=== PATIENT | female | born 1975 | race Caucasian/White ===

== ENCOUNTER 2017-02-05 15:55 | Emergency (ER) | payer OTHER ==
[2017-02-05 17:37] VITALS: BP 121/76
--- NOTE | 2017-02-05 18:24 | RAD ---
INDICATION: Back pain. Injury. COMPARISON: None TECHNIQUE: Upright AP and lateral views were obtained . FINDINGS: Bones: There are no acute bony findings. There are no significant osteoarthritic findings. Alignment: Normal Disc spaces: The disc spaces are well-maintained Soft tissues: There are no soft tissue abnormalities. IMPRESSION: NEGATIVE EXAMINATION
--- NOTE | 2017-02-05 19:58 | UC ---
Back Pain HPI - HPI Summary HPI Summary: AND FALL YESTERDAY ON WET POLISHED FLOOR, SIMILAR ACCIDENT TODAY. PAIN IN LEFT LOW BACK; GLUTEAL AREA RADIATES UP BACK. NO LOC. NO LOSS OF CONTROL OF BLADDER OR BOWELS. NO NUMBNESS OR TINGLING IN LEGS. NO BRUISING. - History of Current Complaint Chief Complaint: UCBackPain Stated Complaint: BACK INJURY Time Seen by Provider: 02/05/17 17:45 Hx Obtained From: Patient Hx Last Menstrual Period: 01/27/17 Onset/Duration: Gradual Onset, Lasting Hours, Lasting Days Timing: Intermittent Severity Initially: Moderate Severity Currently: Moderate Pain Intensity: 5 Pain Scale Used: 0-10 Numeric Back Pain: Is Discrete @ - LEFT LOW BACK Character: Spasmodic, Stiffness Aggravating: Movement, Lifting, Bending Alleviating: Position Associated Signs And Symptoms: Negative: Swelling, Redness, Bruising, Fever, Weakness, Numbness, Tingling, Abdominal Pain, Flank Pain, Bladder Incontinence, Bowel Incontinence, Pain with Weight Bearing - Risk Factors TAD Risk Factors: Negative Cauda Equina Risk Factors: Negative Epidural Abscess Risk Factors: Negative - Allergies/Home Medications Allergies/Adverse Reactions: Allergies Allergy/AdvReac Type Severity Reaction Status Date / Time No Known Allergies Allergy Verified 02/05/17 17:37 PMH/Surg Hx/FS Hx/Imm Hx Previously Healthy: Yes - Surgical History Surgical History: None - Family History Known Family History: Negative: Renal Disease - Social History Occupation: Employed Full-time Lives: With Family Alcohol Use: Occasionally Substance Use Type: None Smoking Status (MU): Never Smoked Tobacco - Immunization History Most Recent Influenza Vaccination: no Review of Systems Constitutional: Negative Skin: Negative Eyes: Negative ENT: Negative Respiratory: Negative Cardiovascular: Negative Gastrointestinal: Negative Genitourinary: Negative Motor: Negative Neurovascular: Negative Musculoskeletal: Arthralgia, Myalgia Neurological: Negative Psychological: Negative Is Patient Immunocompromised?: No All Other Systems Reviewed And Are Negative: Yes Physical Exam Triage Information Reviewed: Yes Appearance: Well-Appearing, Well-Nourished, Pain Distress - MILD Vital Signs: Initial Vital Signs Temp 97.6 F 02/05/17 17:29 Pulse 50 02/05/17 17:29 Resp 14 02/05/17 17:29 BP 121/76 02/05/17 17:29 Pulse Ox 100 02/05/17 17:29 Vital Signs Reviewed: Yes Eye Exam: Normal ENT Exam: Normal ENT: Positive: Normal ENT inspection, Hearing grossly normal, TMs normal Dental Exam: Normal Neck exam: Normal Neck: Positive: Supple, Nontender, No Lymphadenopathy Respiratory Exam: Normal Respiratory: Positive: Chest non-tender, Lungs clear, Normal breath sounds, No respiratory distress, No accessory muscle use Cardiovascular Exam: Normal Cardiovascular: Positive: RRR, No Murmur, Pulses Normal Abdominal Exam: Normal Musculoskeletal: Positive: Strength Intact, ROM Intact, No Edema, Other: - PALPABLE SPASM LEFT LOW BACK/PIRIFORMIS; NEGATIVE STRAIGHT LEG RAISE Neurological Exam: Normal Psychological Exam: Normal Skin Exam: Normal Back Pain Course/Dx - Differential Dx/Diagnosis Differential Diagnosis/HQI/PQRI: Strain, Sprain Provider Diagnoses: LOW BACK PAIN Discharge - Discharge Plan Condition: Stable Disposition: HOME Prescriptions: Cyclobenzaprine TAB* [Flexeril 10 MG TAB*] 10 mg PO TID PRN #15 tab PRN Reason: Spasms Patient Education Materials: Acute Low Back Pain (ED), Muscle Spasm (ED) Forms: *Work Release Referrals: [facility] [Outside] No Primary Care Phys,NOPCP [Primary Care Provider] - Additional Instructions: PHYSICAL THERAPY REFERRAL: You have been prescribed physical therapy. Treatments may include stretching, exercise, application of heat or cold, and other modalities. After an injury, PT can reduce swelling and pain. In recovery, PT is used to restore mobility and strength. Your specific treatment goals are: ____x_ Reduction of Swelling (EGS, US, ice as needed) ___x__ Pain Reduction (EGS, US, ice as needed) __x___ TENS Pack Fitting and Instruction Wound Hydrotherapy ____x_ Preservation of Mobility ___x__ Zoroastrianism of Mobility __x___ Strength Zoroastrianism __x___ Work or Sports Hardening This instruction sheet also serves as your PHYSICAL THERAPY REFERRAL! Please take it with you to the therapist, so he/she will be aware of your diagnosis and treatment plan. You may see the physical therapist of your choice for these treatments, but may wish to check with your insurance to be sure the provider you select is covered. It's important to see the doctor to whom you have been referred for follow up.
== END 2017-02-05 18:55 | disposition home or self-care (01) ==
LOC: UCCORT 15:55
DX: M54.5 Low back pain (principal); W01.0XXA Fall on same level from slipping, tripping and stumbling without subsequent striking against object, initial encounter; Y92.9 Unspecified place or not applicable
CPT/HCPCS: 72100; 99202; G0463

== ENCOUNTER 2018-05-05 16:47 | Emergency (ER) | payer BC, OTHER ==
[2018-05-05 17:59] VITALS: BP 127/68
--- NOTE | 2018-05-05 18:22 | UC ---
Ear Complaint HPI - HPI Summary HPI Summary: Pt c/o bilateral ear ache and generalized hearing loss X 1 week. - History of Current Complaint Chief Complaint: UCEar Stated Complaint: BILATERAL EAR PAIN/HEARING LOSS Time Seen by Provider: 05/05/18 18:06 Hx Obtained From: Patient Hx Last Menstrual Period: 05/01/18 ?: No Onset/Duration: Gradual Onset, Lasting Days, Still Present Severity Initially: Mild Severity Currently: Mild Pain Intensity: 3 Associated Signs/Symptoms: Positive: Hearing Loss - Allergies/Home Medications Allergies/Adverse Reactions: Allergies Allergy/AdvReac Type Severity Reaction Status Date / Time No Known Allergies Allergy Verified 05/05/18 17:56 Home Medications: Home Medications NK [No Home Medications Reported] 05/05/18 [History Confirmed 05/05/18] PMH/Surg Hx/FS Hx/Imm Hx Previously Healthy: Yes - Surgical History Surgical History: None - Family History Known Family History: Negative: Renal Disease - Social History Occupation: Employed Full-time Lives: With Family Alcohol Use: Occasionally Substance Use Type: None Smoking Status (MU): Never Smoked Tobacco Have You Smoked in the Last Year: No - Immunization History Most Recent Influenza Vaccination: no Review of Systems All Other Systems Reviewed And Are Negative: Yes Constitutional: Positive: Negative Skin: Positive: Negative Eyes: Positive: Negative ENT: Positive: Ear Ache, Other - hearing loss Respiratory: Positive: Negative Cardiovascular: Positive: Negative Gastrointestinal: Positive: Negative Genitourinary: Positive: Negative Motor: Positive: Negative Neurovascular: Positive: Negative Musculoskeletal: Positive: Negative Neurological: Positive: Negative Psychological: Positive: Negative Is Patient Immunocompromised?: No Physical Exam Triage Information Reviewed: Yes Appearance: Well-Appearing Vital Signs: Initial Vital Signs Temp 98.6 F 05/05/18 17:57 Pulse 72 05/05/18 17:57 Resp 14 05/05/18 17:57 BP 127/68 05/05/18 17:57 Pulse Ox 100 05/05/18 17:57 Vital Signs Reviewed: Yes Eye Exam: Normal ENT: Positive: TM bulging - bilateral Dental Exam: Normal Neck exam: Normal Respiratory Exam: Normal Musculoskeletal Exam: Normal Neurological Exam: Normal Psychological Exam: Normal Skin Exam: Normal Ear Complaint Course/Dx - Course Course Of Treatment: Pt reports that she has an apointment [facility] manager pricing on 05/06/18. Pt was encourage to keep appointment. - Differential Dx/Diagnosis Differential Diagnosis/HQI/PQRI: Otitis Media, URI Provider Diagnosis: Acute pain of both ears, Hearing loss, bilateral Discharge - Sign-Out/Discharge Documenting (check all that apply): Patient Departure All imaging exams completed and their final reports reviewed: No Studies - Discharge Plan Condition: Stable Disposition: HOME Patient Education Materials: Serous Otitis Media (ED) Referrals: [facility] [Outside] - If Needed No Primary Care Phys,NOPCP [Primary Care Provider] - Additional Instructions: PLEASE KEEP YOUR APPOINTMENT WITH THE VANSTONE MACHINE OPERATOR ON 05/06/18. IF YOUR SYMPTOMS WORSEN PLEASE SEEK CARE AT THE [facility]ARE [facility] SOON POSSIBLE. - Billing Disposition and Condition Condition: STABLE Disposition: Home - Attestation Statements Provider Attestation: Per institutional requirements, I have reviewed the chart, however, I was not consulted specifically or made aware of this patient by the midlevel provider. I did not personally evaluate, interact with , or disposition this patient.
== END 2018-05-05 18:24 | disposition home or self-care (01) ==
LOC: UCCORT 16:47
DX: H92.03 Otalgia, bilateral (principal); H91.93 Unspecified hearing loss, bilateral
CPT/HCPCS: 99211; G0463

== ENCOUNTER 2018-09-25 10:15 | Emergency (ER) | payer BC ==
--- NOTE | 2018-09-25 11:04 | UC ---
Palpitation/Dysrhythmia HP - HPI Summary HPI Summary: Per manager trade: "c/o not feeling well and got dizzy today. States chest fluttering intermittently past 3 days. Lasts about 15 minutes. Happens usually when lying down, but today she was sitting. 3 days ago, did have "breast tissue pain", but none now. " -sx started Th night (09/23) after taking an otc generic cold/allergy med. she was able to call home to get ingredients that include phenylephrine. she is very sensitive to any medication and therefore avoids taking them. she has a hard time staying awake even w/ just zyrtec. last night and this morning she took mucinex, which is normally not problematic for her. she The fluttering is fleeting lasting < 1 minute. mild chest pressure with it, no SOB. some dizziness , like pre-syncopal feeling. -today she was sitting in a conference that her was leading and started to get the same sx. she came here thereafter. she did have a [employer] coffee today too. doesnt smoke. no diet pills. she exercises regularly and has a normally lower heart rate in 50s. -denies , had vasectomy -she admits to " alot of thinsg going on". 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 she does admit that these are relevant and that she feels liek she is going to cry every time I ask about stressors. She has a therapist in [place] that she is interested in contacting as she did very well with him in the past. 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 MACHINE OPERATOR AUTOMATIC but never has issues to address other than BRAZING MACHINE OPERATOR AUTOMATIC things - History of Current Complaint Chief Complaint: UCGeneralIllness Stated Complaint: FLUTTERING IN CHEST, SHAKEY Time Seen by Provider: 09/25/18 10:29 Hx Last Menstrual Period: 10 days ago Pain Intensity: 0 - Allergy/Home Medications Allergies/Adverse Reactions: Allergies Allergy/AdvReac Type Severity Reaction Status Date / Time No Known Allergies Allergy Verified 09/25/18 10:17 Home Medications: Home Medications guaiFENesin ER TAB [Mucinex*] 600 mg PO BID PRN 09/25/18 [History Confirmed 09/10] PMH/Surg Hx/FS Hx/Imm Hx Previously Healthy: Yes - Surgical History Surgical History: None - Family History Known Family History: Negative: Renal Disease - Social History Alcohol Use: Occasionally Substance Use Type: None Smoking Status (MU): Never Smoked Tobacco Have You Smoked in the Last Year: No - Immunization History Most Recent Influenza Vaccination: no Review of Systems All Other Systems Reviewed And Are Negative: Yes Constitutional: Positive: Fatigue Skin: Positive: Negative Eyes: Positive: Negative ENT: Positive: Nasal Discharge - allergy like sx Respiratory: Positive: Negative Cardiovascular: Positive: Palpitations - see above Genitourinary: Positive: Negative Motor: Positive: Negative Neurovascular: Positive: Negative Musculoskeletal: Positive: Negative Neurological: Positive: Negative Psychological: Positive: Negative Is Patient Immunocompromised?: No Physical Exam Triage Information Reviewed: Yes Appearance: Well-Nourished, Ill-Appearing - mild, appears anxiouis and initially breathing deeply. tearful at times but also smiling and consolable. very good historian, very pleasant. dressed nicely. Vital Signs: Initial Vital Signs Temp 97.9 F 09/25/18 10:18 Pulse 75 09/25/18 10:18 Resp 17 09/25/18 10:18 BP 140/75 09/25/18 10:18 Pulse Ox 99 09/25/18 10:18 Vital Signs Reviewed: Yes Eye Exam: Normal ENT Exam: Normal ENT: Positive: Normal ENT inspection, Pharynx normal, TMs normal, Uvula midline Dental Exam: Normal Neck exam: Normal Neck: Positive: Supple, Nontender, No Lymphadenopathy Respiratory Exam: Normal Respiratory: Positive: Lungs clear, Normal breath sounds, No respiratory distress, No accessory muscle use. Negative: Crackles, Rhonchi, Stridor, Wheezing Cardiovascular Exam: Normal Cardiovascular: Positive: RRR, No Murmur, Pulses Normal, Brisk Capillary Refill Abdominal Exam: Normal Abdomen Description: Positive: Nontender, Soft. Negative: Distended, Guarding Musculoskeletal Exam: Normal Neurological Exam: Normal Psychological Exam: Normal Skin Exam: Normal Skin: Negative: Rashes Palpitations Course/Dx - Course Course Of Treatment: EKG: NSR, nml axis, no AV/IV changes. HR 60s. No st/t changes. no delta waves. -sx are likely multi-factorial that are aggrevated by phenylephrine and stressors. can't r/o arrhythmia and disc importance of work up recommending at least 48 hr holter if not event monitor. -avoid decongestents. -will call her 's PCP through [facility] to est care and F/u. 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 -thearpy I think will be helpful as well -she has had panic attacks in past and sx do seem to be somehwat similar -deep breathing w/ recurrent sx -she is very receptive to this plan and appreciative -no recent labs -today - cbc, cmp, lipids, tsh, ft4. -recommend she can call for results too -rec release given for her to expedite records getting to new pcp - Differential Dx/Diagnosis Differential Diagnosis/HQI/PQRI: Paroxymal SVT, Other - arrhythmia Provider Diagnosis: Palpitations Discharge - Sign-Out/Discharge Documenting (check all that apply): Patient Departure All imaging exams completed and their final reports reviewed: No Studies - Discharge Plan Condition: Stable Disposition: HOME Patient Education Materials: Heart Palpitations (ED) Referrals: No Primary Care Phys,NOPCP [Primary Care Provider] - Additional Instructions: We talked today about several things that could be contributing to your recent symptoms. The phenylephrine that you took Th night likely contributed, along with feelings of stress and being overwhelmed. We also talked about the importance of further evaluation to rule out any other cause and to try to "catch" your heart rhythm on a monitor while you are having the symptoms. I would recommend getting at least a 48 hr monitor if not a 14 day monitor. Today we checked for electrolytes, kidney function, liver function, blood count and thyroid as standard work up. We talked about the value of checking in with your therapist in [place] as well. Also, it is a good idea to have a PCP to have follow up with. You can call your 's PCP office on Thursday to set up an appt for this week hopefully. -Please go to the ER with more significant symptoms or passing out. -Avoid all cold medicines and decongestants. Decreasing caffeine and doing 1/2 decaf may be beneficial as well. - Billing Disposition and Condition Condition: STABLE Disposition: Home
[2018-09-25 12:05] VITALS: BP 107/65
[2018-09-25 14:33] LABS: ABS Eosinophils 0.1 10^3/ul (0-0.6); ABS Lymphocytes 0.9 10^3/ul (1.0-4.8); ABS Monocytes 0.6 10^3/ul (0-0.8); ABS Neutrophils 1.9 10^3/ul (1.5-7.7); Eosinophil % 1.4 %; Hematocrit 41 % (35-47); Hemoglobin 14.1 g/dL (12.0-16.0); Mean Corpuscular HGB Conc 34 g/dL (31-36); Mean Corpuscular Hemoglobin 31 pg (27-31); Mean Corpuscular Volume 91 fL (80-97); Mean Platelet Volume 7.6 fL (7.4-10.4); Nucleated Red Blood Cells % 0.1; Platelet Count 331 10^3/uL (150-450); Red Blood Count 4.53 10^6 /uL (3.70-4.87); Red Cell Distribution Width 13 % (10.5-15); White Blood Count 3.5 10^3/uL (3.5-10.8)
[2018-09-25 15:06] LABS: Albumin 4.7 g/dL (3.2-5.2); BUN/Creatinine Ratio 15.9 (8-20); Calcium 9.7 mg/dL (8.6-10.3); EGFR African American 91.6 (>60); EGFR Non-African American 75.7 (>60); Globulin 2.4 g/dL (2-4); Potassium 4.3 mmol/L (3.5-5.0); Total Bilirubin 0.5 mg/dL (0.2-1.0); Total Protein 7.1 g/dL (6.4-8.9)
[2018-09-25 15:11] LABS: TSH (Thyroid Stimulating Horm) 1.91 mcIU/mL (0.34-5.60)
[2018-09-25 15:15] LABS: Free T4 0.94 ng/dL (0.61-1.12)
--- NOTE | 2018-09-26 08:22 | UC ---
- Progress Note Progress Note: Reviewed blood work from 09/25/18 - non-urgent / emergent actionable. F/u physician(s) as advised per AVS instructions, and to seek medical attention for worse or new problems. Course/Dx - Diagnoses Provider Diagnoses: Palpitations Discharge - Sign-Out/Discharge Documenting (check all that apply): Post-Discharge Follow Up All imaging exams completed and their final reports reviewed: No Studies - Discharge Plan Condition: Stable Disposition: HOME Patient Education Materials: Heart Palpitations (ED) Referrals: No Primary Care Phys,NOPCP [Primary Care Provider] - Additional Instructions: We talked today about several things that could be contributing to your recent symptoms. The phenylephrine that you took Th night likely contributed, along with feelings of stress and being overwhelmed. We also talked about the importance of further evaluation to rule out any other cause and to try to "catch" your heart rhythm on a monitor while you are having the symptoms. I would recommend getting at least a 48 hr monitor if not a 14 day monitor. Today we checked for electrolytes, kidney function, liver function, blood count and thyroid as standard work up. We talked about the value of checking in with your therapist in [place] as well. Also, it is a good idea to have a PCP to have follow up with. You can call your 's PCP office on Thursday to set up an appt for this week hopefully. -Please go to the ER with more significant symptoms or passing out. -Avoid all cold medicines and decongestants. Decreasing caffeine and doing 1/2 decaf may be beneficial as well. - Billing Disposition and Condition Condition: STABLE Disposition: Home
== END 2018-09-25 12:06 | disposition home or self-care (01) ==
LOC: UCCORT 10:15
DX: R00.2 Palpitations (principal); R42 Dizziness and giddiness
CPT/HCPCS: 36415; 80053; 84439; 84443; 85025; 99211; G0463